=== PATIENT | female | born 1955 | race African-American/Black ===

== ENCOUNTER 2017-03-04 08:36 | Emergency (ER) | payer OTHER ==
[~2017-03-04] VITALS: Ht 165.1 cm; Wt 64.4 kg
--- NOTE | ~2017-03-04 | EKG ---
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1955 Requested By: Shahbaz Coronel Order Number: [id number] MD: Minh Hood Measurements Intervals [place] Rate: 75 P: 103 [place]: 154 QRS: -34 QRSD: 97 T: 85 QT: 389 QTc: 435 Interpretive Statements Sinus rhythm Consider left atrial enlargement RSR' in V1 or V2, right VCD or RVH LVH with secondary repolarization abnormality Compared to ECG 04/21/2014 01:51:21 Right ventricular hypertrophy now present RSR' in V1 or V2 now present Left ventricular hypertrophy now present Early repolarization now present Ventricular preexcitation no longer present Electronically Signed On 03-04-2017 15:49:12 POULTRY PICKING MACHINE TENDER by Minh Hood [email or web address] <ELECTRONICALLY SIGNED> By: Minh Hood MD 03/04/17 1549 0848 Minh Hood MD /EPI
--- NOTE | ~2017-03-04 | EKG ---
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1955 Requested By: Devi Bell Order Number: [id number] MD: Minh Hood Measurements Intervals [place] Rate: 66 P: 51 [place]: 169 QRS: -3 QRSD: 83 T: 33 QT: 400 QTc: 420 Interpretive Statements Sinus rhythm Probable left atrial enlargement RSR' in V1 or V2, right VCD or RVH Borderline ST elevation, anterolateral leads Compared to ECG 03/04/2017 08:48:02 ST (T wave) deviation now present Left ventricular hypertrophy no longer present Early repolarization no longer present Electronically Signed On 03-04-2017 18:42:37 RUBBER BLOCK LAYER by Minh Hood [email or web address] <ELECTRONICALLY SIGNED> By: Minh Hood MD 03/04/17 1842 1044 1044 Minh Hood MD /EPI
[~2017-03-04 08:36] MED LIST: BACTRIM DS TAB1 EACH; FLEXERIL PO; IBUPROFEN 600600 M1 PO; IBUPROFEN 800800 M1 PO; MEDROLDOSEPACK PO; MOBIC15 MG PO; MULTIVITAMINS1 EAC7 PO; NOHOMEMEDICATIONS; NORCO 5-325 TA1 EACH PO; NORFLEX100 MG PO; OSELB75 PO; PENICILLIN V P500 MG PO; SENNA8.6 MG PO
[2017-03-04 09:21] LABS: ABSOLUTE NEUTROPHILS 1.4 thou/uL (1.4-8.2); BASOPHILS 0.6 % (0.0-2.0); EOSINOPHILS 2.7 % (0.0-3.0); HEMOGLOBIN 12.3 gm/dL (12.0-15.0); LYMPHOCYTES 40.4 % (24.0-44.0); MCH 27.6 pg (26.0-34.0); MCHC 32.2 g/dL (28.0-37.0); MCV 85.5 fL (80.0-100.0); MONOCYTES 9.9 % (1.0-8.0); PLATELET COUNT 127 thou/uL (150-400); POLYS 46.4 % (36.0-66.0); RBC 4.44 mil/uL (4.20-5.00); RDW 13.7 % (10.5-14.5)
[2017-03-04 09:23] LABS: MANUAL DIFF NO
[2017-03-04 09:26] LABS: ANION GAP 4 mmol/L (7-16); BUN 12 mg/dL (7-18); CALCIUM 9.6 mg/dL (8.5-10.1); CHLORIDE 107 mmol/L (98-107); CO2 30 mmol/L (21-32); CREATININE 0.8 mg/dL (0.6-1.0); GLUCOSE 88 mg/dL (74-106); SODIUM 141 mmol/L (136-145)
[2017-03-04 09:35] LABS: ALBUMIN 3.7 g/dL (3.4-5.0); ALKALINE PHOSPHATASE 95 U/L (46-116); SGOT 15 U/L (15-37); SGPT 18 U/L (30-65); TOTAL BILIRUBIN 0.6 mg/dL (<0.1-1.0); TOTAL PROTEIN 7.8 g/dL (6.4-8.2); TROPONIN-I < 0.04 ng/mL (<0.06)
[2017-03-04 09:36] LABS: APTT 23.8 Seconds (24.5-32.8)
[2017-03-04] MEDS ORDERED: HYDROCODONE-AP1 EAC6 PO (11:23)
[2017-03-04] MEDS ORDERED: PREDNISONE 20 M20 MG PO (11:23)
[2017-03-04 11:27] VITALS: BP 132/79
== END 2017-03-04 11:42 | disposition home or self-care (01) ==
LOC: ER 08:36
PROVIDERS: Emergency Medicine
DX: R09.1 Pleurisy (principal); R07.89 Other chest pain; H61.22 Impacted cerumen, left ear; I45.6 Pre-excitation syndrome; F10.99 Alcohol use, unspecified with unspecified alcohol-induced disorder; Z90.49 Acquired absence of other specified parts of digestive tract; Z98.890 Other specified postprocedural states; Z90.710 Acquired absence of both cervix and uterus; Z88.5 Allergy status to narcotic agent

== ENCOUNTER 2018-05-03 09:52 | Emergency (ER) | payer OTHER ==
[~2018-05-03] VITALS: Ht 165.1 cm; Wt 63.5 kg
[~2018-05-03 09:52] MED LIST changes: +HYDROCODONE-AP1 EAC6 PO; +PREDNISONE 20 M20 MG PO; +ZOFRAN ODT4 MG PO
[2018-05-03 10:24] LABS: URINE BILIRUBIN NEGATIVE (Negative); URINE BLOOD NEGATIVE (Negative); URINE CLARITY CLEAR; URINE COLOR YELLOW; URINE GLUCOSE-RANDOM* NEGATIVE (Negative); URINE KETONES NEGATIVE (Negative); URINE LEUKOCYTES-REFLEX NEGATIVE (Negative); URINE NITRITE-REFLEX NEGATIVE (Negative); URINE PROTEIN (DIPSTICK) NEGATIVE (Negative); URINE SPECIFIC GRAVITY 1.025 (1.005-1.035); URINE UROBILINOGEN 0.2 E.U./dl (0.2-1.0)
[2018-05-03 10:34] LABS: ABSOLUTE NEUTROPHILS 6.4 thou/uL (1.4-8.2); BASOPHILS 0.2 % (0.0-2.0); HEMATOCRIT 43.6 % (37.0-47.0); HEMOGLOBIN 14.2 gm/dL (12.0-15.0); LYMPHOCYTES 1.8 % (24.0-44.0); MCH 27.9 pg (26.0-34.0); MCHC 32.6 g/dL (28.0-37.0); MCV 85.6 fL (80.0-100.0); MONOCYTES 2.5 % (1.0-8.0); PLATELET COUNT 156 thou/uL (150-400); POLYS 95.5 % (36.0-66.0); RBC 5.09 mil/uL (4.20-5.00); WBC 6.8 thou/uL (4.0-11.0)
[2018-05-03] MEDS ORDERED: NEURONTIN 300300 M1 PO (10:37)
[2018-05-03 10:38] LABS: CALCIUM 10.1 mg/dL (8.5-10.1); POTASSIUM 4.2 mmol/L (3.5-5.1)
[2018-05-03] MEDS ORDERED: ZANTAC 150MG T150 M1 PO (10:39)
[2018-05-03 10:44] LABS: ALBUMIN 4.2 g/dL (3.4-5.0); TOTAL BILIRUBIN 0.6 mg/dL (<0.1-1.0); TOTAL PROTEIN 8.5 g/dL (6.4-8.2)
[2018-05-03] MEDS ORDERED: ZOFRAN ODT4 MG PO (11:34)
[2018-05-03 11:45] VITALS: BP 128/73
== END 2018-05-03 11:46 | disposition home or self-care (01) ==
LOC: ER 09:52
PROVIDERS: Emergency Medicine
DX: K52.9 Noninfective gastroenteritis and colitis, unspecified (principal); Z90.49 Acquired absence of other specified parts of digestive tract; Z90.710 Acquired absence of both cervix and uterus; Z98.890 Other specified postprocedural states; Z88.5 Allergy status to narcotic agent

== ENCOUNTER 2018-05-23 15:44 | Emergency (ER) | payer OTHER ==
[~2018-05-23] VITALS: Ht 165.1 cm; Wt 63.5 kg
[~2018-05-23 15:44] MED LIST changes: +NEURONTIN 300300 M1 PO; +ZANTAC 150MG T150 M1 PO
[2018-05-23 16:10] LABS: ABSOLUTE NEUTROPHILS 4.9 thou/uL (1.4-8.2); BASOPHILS 0.2 % (0.0-2.0); HEMATOCRIT 41.7 % (37.0-47.0); HEMOGLOBIN 13.9 gm/dL (12.0-15.0); LYMPHOCYTES 5.2 % (24.0-44.0); MCH 28.5 pg (26.0-34.0); MCHC 33.3 g/dL (28.0-37.0); MCV 85.4 fL (80.0-100.0); MONOCYTES 6.9 % (1.0-8.0); POLYS 87.7 % (36.0-66.0); RBC 4.88 mil/uL (4.20-5.00); RDW 13.7 % (10.5-14.5); WBC 5.6 thou/uL (4.0-11.0)
[2018-05-23 16:24] LABS: CALCIUM 10.4 mg/dL (8.5-10.1); CREATININE 1.2 mg/dL (0.6-1.0); POTASSIUM 4.1 mmol/L (3.5-5.1)
[2018-05-23 16:30] LABS: TOTAL BILIRUBIN 0.6 mg/dL (<0.1-1.0); TOTAL PROTEIN 8.5 g/dL (6.4-8.2)
[2018-05-23 17:18] LABS: LARGE PLATELETS SEVERAL; PLATELET COUNT 163 thou/uL (150-400)
[2018-05-23 18:18] LABS: URINE BILIRUBIN NEGATIVE (Negative); URINE BLOOD NEGATIVE (Negative); URINE CLARITY CLEAR; URINE COLOR YELLOW; URINE GLUCOSE-RANDOM* NEGATIVE (Negative); URINE KETONES TRACE (Negative); URINE LEUKOCYTES-REFLEX NEGATIVE (Negative); URINE NITRITE-REFLEX NEGATIVE (Negative); URINE PROTEIN (DIPSTICK) TRACE (Negative); URINE SPECIFIC GRAVITY >= 1.030 (1.005-1.035); URINE UROBILINOGEN 0.2 E.U./dl (0.2-1.0)
[2018-05-23 18:28] LABS: AMP/METHAMP Negative (Negative); BARBITURATES Negative (Negative); BENZODIAZEPINES Negative (Negative); COCAINE Negative (Negative); METHADONE Negative (Negative); OPIATES Negative (Negative); PCP Negative (Negative)
[2018-05-23] MEDS ORDERED: ZOFRAN ODT4 MG PO (18:55)
[2018-05-23 19:15] VITALS: BP 111/64
== END 2018-05-23 19:16 | disposition home or self-care (01) ==
LOC: ER 15:44
PROVIDERS: Emergency Medicine
DX: R11.2 Nausea with vomiting, unspecified (principal); R19.7 Diarrhea, unspecified; Z98.890 Other specified postprocedural states; Z90.49 Acquired absence of other specified parts of digestive tract; Z90.710 Acquired absence of both cervix and uterus; Z88.6 Allergy status to analgesic agent; Z79.899 Other long term (current) drug therapy

== ENCOUNTER 2018-10-02 08:42 | Emergency (ER) | payer OTHER ==
[~2018-10-02] VITALS: Ht 165.1 cm; Wt 63.5 kg
[2018-10-02 10:20] LABS: HEMATOCRIT 34.8 % (37.0-47.0); HEMOGLOBIN 11.4 gm/dL (12.0-15.0); MCH 28.2 pg (26.0-34.0); MCHC 32.9 g/dL (28.0-37.0); MCV 85.6 fL (80.0-100.0); PLATELET COUNT 133 thou/uL (150-400); RBC 4.06 mil/uL (4.20-5.00); RDW 14.1 % (10.5-14.5)
[2018-10-02 10:29] LABS: ANION GAP 4 mmol/L (7-16); BUN 16 mg/dL (7-18); CALCIUM 9.7 mg/dL (8.5-10.1); CHLORIDE 106 mmol/L (98-107); CO2 30 mmol/L (21-32); CREATININE 0.9 mg/dL (0.6-1.0); GLUCOSE 84 mg/dL (74-106); POTASSIUM 4.8 mmol/L (3.5-5.1); SODIUM 140 mmol/L (136-145)
[2018-10-02 10:37] LABS: TROPONIN-I <0.06 ng/mL (<0.06)
[2018-10-02 10:53] LABS: ABSOLUTE NEUTROPHILS 1.2 thou/uL (1.4-8.2); ANISOCYTOSIS 1+
[2018-10-02] MEDS ORDERED: NORFLEX100 MG PO (11:03)
[2018-10-02] MEDS ORDERED: NAPROSYN500 MG PO (11:03)
[2018-10-02] MEDS ORDERED: MEDROLDOSEPACK PO (11:16)
[2018-10-02 11:46] VITALS: BP 134/74
--- NOTE | 2018-10-04 09:07 | EKG ---
[address] [place] [address] ELECTROCARDIOGRAM REPORT Name: DAMASO GARCIAOH Lares Room #: 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: [id number] : 1955 Requested By: Fili Carreon Order Number: [id number] MD: Junaid Mancilla Measurements Intervals [place] Rate: 58 P: 135 [place]: 157 QRS: -7 QRSD: 92 T: 50 QT: 384 QTc: 378 Interpretive Statements Baseline artifact limits interpretation Sinus or ectopic atrial rhythm Compared to ECG 03/08/2017 17:22:19 No significant changes Electronically Signed On 10-04-2018 9:07:43 CDT by Junaid Mancilla [email or web address] ��������������������������������������������� <ELECTRONICALLY SIGNED> ���������������������������������������� By: Junaid Mancilla MD, [facility] ��������������������������������������������� 10/04/1807 0947 0947 Junaid Mancilla MD, FAC /EPI
== END 2018-10-02 11:46 | disposition home or self-care (01) ==
LOC: ER 08:42
PROVIDERS: Emergency Medicine
DX: M54.2 Cervicalgia (principal); M54.6 Pain in thoracic spine; R07.89 Other chest pain; Z90.49 Acquired absence of other specified parts of digestive tract; Z98.890 Other specified postprocedural states; Z90.710 Acquired absence of both cervix and uterus; Z88.5 Allergy status to narcotic agent

== ENCOUNTER 2018-11-04 17:56 | Emergency (ER) | payer OTHER ==
[~2018-11-04] VITALS: Ht 165.1 cm; Wt 62.6 kg
[~2018-11-04 17:56] MED LIST changes: +NAPROSYN500 MG PO
[2018-11-04] MEDS ORDERED: NEURONTIN600 MG PO (18:23)
[2018-11-04] MEDS ORDERED: NAPROSYN500 MG PO (19:32)
[2018-11-04] MEDS ORDERED: TRAMADOL 50 MG50 MG PO (19:32)
[2018-11-04 19:39] VITALS: BP 133/79
== END 2018-11-04 19:40 | disposition home or self-care (01) ==
LOC: ER 17:56
DX: S70.01XA Contusion of right hip, initial encounter (principal); M25.511 Pain in right shoulder; M25.521 Pain in right elbow; Z88.5 Allergy status to narcotic agent; Z79.899 Other long term (current) drug therapy; Z98.890 Other specified postprocedural states; Z90.49 Acquired absence of other specified parts of digestive tract; Z90.710 Acquired absence of both cervix and uterus; W18.49XA Other slipping, tripping and stumbling without falling, initial encounter; Y93.89 Activity, other specified; Y92.511 Restaurant or cafe as the place of occurrence of the external cause; Y99.9 Unspecified external cause status

== ENCOUNTER 2018-11-08 10:52 | Emergency (ER) | payer OTHER ==
[~2018-11-08] VITALS: Ht 165.1 cm; Wt 62.6 kg
[~2018-11-08 10:52] MED LIST changes: +NEURONTIN600 MG PO; +TRAMADOL 50 MG50 MG PO
[2018-11-08 10:53] VITALS: BP 152/71
[2018-11-08] MEDS ORDERED: ULTRAM 50MG TAB50 MG PO (11:15)
== END 2018-11-08 11:25 | disposition home or self-care (01) ==
LOC: ER 10:52
DX: M54.41 Lumbago with sciatica, right side (principal); Z98.890 Other specified postprocedural states; Z90.49 Acquired absence of other specified parts of digestive tract; Z90.710 Acquired absence of both cervix and uterus; Z88.5 Allergy status to narcotic agent

== ENCOUNTER 2019-02-18 08:33 | Emergency (ER) | payer OTHER ==
[~2019-02-18] VITALS: Ht 165.1 cm; Wt 62.6 kg
[~2019-02-18 08:33] MED LIST changes: +ULTRAM 50MG TAB50 MG PO
[2019-02-18] MEDS ORDERED: ONE-A-DAY WOMENS PO (08:57)
[2019-02-18] MEDS ORDERED: VITAMIN D250000 UNIT PO (08:57)
[2019-02-18] MEDS ORDERED: OMEPRAZOLE40 MG PO (08:57)
[2019-02-18] MEDS ORDERED: CALCIUM500 MG PO (08:58)
[2019-02-18 09:53] LABS: URINE BILIRUBIN NEGATIVE (Negative); URINE BLOOD NEGATIVE (Negative); URINE CLARITY CLEAR; URINE COLOR YELLOW; URINE GLUCOSE-RANDOM* NEGATIVE (Negative); URINE KETONES NEGATIVE (Negative); URINE LEUKOCYTES-REFLEX NEGATIVE (Negative); URINE NITRITE-REFLEX NEGATIVE (Negative); URINE PROTEIN (DIPSTICK) NEGATIVE (Negative); URINE UROBILINOGEN 0.2 E.U./dl (0.2-1.0)
[2019-02-18 10:30] LABS: ABSOLUTE NEUTROPHILS 1.9 thou/uL (1.4-8.2); BASOPHILS 0.6 % (0.0-2.0); EOSINOPHILS 1.8 % (0.0-3.0); HEMATOCRIT 40.3 % (37.0-47.0); HEMOGLOBIN 12.8 gm/dL (12.0-15.0); LYMPHOCYTES 38.2 % (24.0-44.0); MCHC 31.9 g/dL (28.0-37.0); MCV 87.7 fL (80.0-100.0); MONOCYTES 7.9 % (1.0-8.0); POLYS 51.5 % (36.0-66.0); RBC 4.59 mil/uL (4.20-5.00); RDW 13.9 % (10.5-14.5); WBC 3.6 thou/uL (4.0-11.0)
[2019-02-18 10:44] LABS: ANION GAP 10 mmol/L (7-16); BUN 12 mg/dL (7-18); CHLORIDE 104 mmol/L (98-107); CO2 26 mmol/L (21-32); CREATININE 0.7 mg/dL (0.6-1.0); GLUCOSE 90 mg/dL (74-106); SODIUM 140 mmol/L (136-145)
[2019-02-18 10:55] LABS: ALBUMIN 4.1 g/dL (3.4-5.0); LIPASE 123 U/L (73-393); SGOT 15 U/L (15-37); SGPT 13 U/L (30-65); TOTAL BILIRUBIN 0.5 mg/dL (<0.1-1.0); TOTAL PROTEIN 7.8 g/dL (6.4-8.2); TROPONIN-I <0.06 ng/mL (<0.06)
[2019-02-18 11:36] LABS: PLATELET COUNT 138 thou/uL (150-400); PLATELET ESTIMATE NORMAL
[2019-02-18] MEDS ORDERED: ZOFRAN ODT4 MG PO (11:59)
[2019-02-18 12:05] VITALS: BP 133/72
--- NOTE | 2019-02-18 12:30 | EKG ---
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 : 1955 Requested By: Clement Macdonald Order Number: [id number] MD: Robles Lujan Measurements Intervals [place] Rate: 63 P: 55 [place]: 167 QRS: 4 QRSD: 90 T: 53 QT: 423 QTc: 434 Interpretive Statements Sinus rhythm Probable left atrial enlargement Nonspecific ST segment abnormalities Compared to ECG 10/02/2018 09:47:44 Right ventricular hypertrophy now present RSR' in V1 or V2 now present ST (T wave) deviation now present Ectopic atrial rhythm no longer present Electronically Signed On 02-18-2019 12:29:48 COOK CHEF by Robles Lujan [email or web address] <ELECTRONICALLY SIGNED> By: Robles Lujan MD 02/18/19 1229 0844 Rolbes Lujan MD /EPI
== END 2019-02-18 12:05 | disposition home or self-care (01) ==
LOC: ER 08:33
PROVIDERS: Emergency Medicine
DX: R51 Headache (principal); R53.1 Weakness; R05 Cough; R11.0 Nausea; Z88.5 Allergy status to narcotic agent; Z98.890 Other specified postprocedural states; Z90.710 Acquired absence of both cervix and uterus; Z90.49 Acquired absence of other specified parts of digestive tract

== ENCOUNTER 2019-09-07 12:19 | Emergency (ER) | payer OTHER ==
[~2019-09-07] VITALS: Ht 165.1 cm; Wt 63.5 kg
[~2019-09-07 12:19] MED LIST changes: +CALCIUM500 MG PO; +OMEPRAZOLE40 MG PO; +ONE-A-DAY WOMENS PO; +VITAMIN D250000 UNIT PO
[2019-09-07] MEDS ORDERED: PREDNISONE 10 M10 MG PO (13:43)
[2019-09-07] MEDS ORDERED: NORFLEX100 MG PO (13:43)
[2019-09-07 14:00] VITALS: BP 133/83
== END 2019-09-07 14:00 | disposition home or self-care (01) ==
LOC: ER 12:19
DX: M54.32 Sciatica, left side (principal); I45.6 Pre-excitation syndrome; Z88.5 Allergy status to narcotic agent; Z79.899 Other long term (current) drug therapy; Z98.890 Other specified postprocedural states; Z90.49 Acquired absence of other specified parts of digestive tract; Z90.710 Acquired absence of both cervix and uterus

== ENCOUNTER 2019-11-16 14:26 | Emergency (ER) | payer OTHER ==
[~2019-11-16] VITALS: Ht 165.1 cm; Wt 67.1 kg
[~2019-11-16 14:26] MED LIST changes: +PREDNISONE 10 M10 MG PO
[2019-11-16] MEDS ORDERED: VITAMIN B-121000 MC2 SUBLING (14:46)
[2019-11-16] MEDS ORDERED: REGLAN 5 MG TAB5 MG PO (17:52)
[2019-11-16 18:23] VITALS: BP 155/84
== END 2019-11-16 18:23 | disposition home or self-care (01) ==
LOC: ER 14:26
DX: R51 Headache (principal); R11.0 Nausea; M54.2 Cervicalgia; Z98.890 Other specified postprocedural states; Z90.711 Acquired absence of uterus with remaining cervical stump; Z90.49 Acquired absence of other specified parts of digestive tract; Z79.899 Other long term (current) drug therapy; Z88.5 Allergy status to narcotic agent

== ENCOUNTER 2021-05-02 11:16 | Emergency (ER) | payer OTHER ==
[~2021-05-02] VITALS: Ht 165.1 cm; Wt 67.1 kg
--- NOTE | ~2021-05-02 | EMS ---
[address] [address] EMS Patient Care Report Name: JEFFREY GARCIA Room #: [facility]#: [id number] Admission: 05/02/21 Attend Phys: Discharge: 05/02/21 Date of : 59 Report #: [id number] THIS REPORT FOR: //name// Report Transmitted: 05/06/2021 14:27 EMS Care Summary [place], [place]/[facility] Incident [id number] @ 05/02/2021 10:43 Incident Location [address] [place] [id number] Patient JEFFREY GARCIA Female, 66 Years 1955 Patient Address [address] [place] [id number] Patient History None Reported, Patient Allergies Morphine, Patient Medications None Reported, Chief Complaint SHORTNESS OF BREATH Disposition Transported No Lights/[place] Dispatch Reason Breathing Problem Transported To [facility] Narrative M42 WAS DISPATCHED FOR A SHORTNESS OF BREATH. UPON ARRIVAL THE PT WAS WALKING OUT TO THE AMBULANCE THE PT INFORMED EMS THAT SHE WAS COVID POSITIVE AND THAT [address] [address] EMS Patient Care Report Name: JEFFREY GARCIA Room #: [facility]#: [id number] Admission: 05/02/21 Attend Phys: Discharge: 05/02/21 Date of : 59 Report #: [id number] SHE HAD BEEN EXPERIENCING SHORTNESS OF BREATH FOR THE PAST 24 HOURS. THE PT SAID THAT SHE HAD ALSO DEVELOPED A SHARP PAIN THAT STARTED UNDER HER LEFT ARMPIT AND RADIATED TO HER MIDDLE AND LOWER BACK. THE PT BREATH SOUNDS WERE CLEAR AND HER 12 LEAD WAS NEGATIVE FOR ANY ST ELEVATION OR DEPRESSION. THE PT WAS TRANSPORTED TO THE HOSPITAL AND MONITORED ENROUTE. THE PT WAS TRANSFERRED TO HOSPITAL STAFF WITH A REPORT. EMS RETURNED TO SERVICE. Initial Vitals @11:01P: 81,R: 18,BP: 167/85,Pain: 2/10,GCS: 15,CO: 1,SpO2: 99,Revised Trauma: 12,MA Suspected: false @11:04P: 80,R: 18,Pain: 2/10,GCS: 15,CO: 1,SpO2: 98,MA Suspected: false @11:08P: 101,R: 16,BP: 143/88,Pain: 2/10,GCS: 15,SpO2: 98,Revised Trauma: 12,MA Suspected: false Assessments @10:59MENTAL:Event Oriented,Person Oriented,Place Oriented,Time Oriented,SKIN:HEENT:Head/Face: No Abnormalities,Eyes: No Abnormalities,Neck/Airway: No Abnormalities,LUNG SOUNDS:General: No Abnormalities,ABDOMEN:General: No Abnormalities,PELVIS//GI:No Abnormalities,EXTREMITIES:Left Arm: No Abnormalities,Right Arm: No Abnormalities,Left Leg: No Abnormalities,Right Leg: No Abnormalities,PULSE:Radial: 2+ Normal,NEURO:No Abnormalities, Impression Acute Respiratory Distress (Dyspnea) Procedures @11:04 12-Lead ECG @10:59 ALS Assessment Response: UnchangedSucceeded @11:01 3-Lead ECG Response: UnchangedSucceeded Timeline 10:42,Call Received 10:42,Dispatch Notified 10:43,Dispatched 10:45,En Route 10:58,On Scene 10:59,At Patient 10:59,ALS Assessment,Response: UnchangedSucceeded, 11:01,3-Lead ECG,Response: UnchangedSucceeded, 11:01,BP: 167/85 M,PULSE: 81,RR: 18 R,SPO2: 99 Ox,ETCO2: ,BG: ,PAIN: 2,GCS: 15, 11:04,12-Lead ECG, 11:04,BP: / M,PULSE: 80,RR: 18 R,SPO2: 98 Ox,ETCO2: ,BG: ,PAIN: 2,GCS: 15, 11:04,Depart Scene 11:08,BP: 143/88 M,PULSE: 101,RR: 16 R,SPO2: 98 Ox,ETCO2: ,BG: ,PAIN: 2,GCS: [address] [address] EMS Patient Care Report Name: JEFFREY GARCIA Luda [id number] Admission: 05/02/21 Attend Phys: Discharge: 05/02/21 Date of : [birth year] Report #: [id number] 15, 11:13,At Destination 11:24,Call Closed Disclaimer v1.1 Copyright 2021 [employer] This EMS Care Summary contains data elements from the applicable legal record (which may be displayed differently). It is designed to provide pertinent information for the following purposes: continuity of care, clinical quality, and state data reporting. The complete legal record is available to ED staff and administrators of the receiving hospital in [employer] Patient Tracker. All data is provided "as is."
[~2021-05-02 11:16] MED LIST changes: +REGLAN 5 MG TAB5 MG PO; +VITAMIN B-121000 MC2 SUBLING
[2021-05-02 12:44] LABS: CALCIUM 9.7 mg/dL (8.5-10.1); CREATININE 0.9 mg/dL (0.6-1.0); POTASSIUM 4.1 mmol/L (3.5-5.1)
[2021-05-02 12:45] LABS: HEMATOCRIT 40.4 % (37.0-47.0); HEMOGLOBIN 12.9 gm/dL (12.0-15.0); MCH 28.1 pg (26.0-34.0); MCV 87.6 fL (80.0-100.0); PLATELET COUNT 131 thou/uL (150-400); RBC 4.61 mil/uL (4.20-5.00); RDW 14.4 % (10.5-14.5); WBC 2.5 thou/uL (4.0-11.0)
[2021-05-02 12:54] LABS: TOTAL BILIRUBIN 0.4 mg/dL (0.2-1.0); TOTAL PROTEIN 8.3 g/dL (6.4-8.2)
[2021-05-02] MEDS ORDERED: TESSALON PERLE100 MG PO (13:31)
[2021-05-02] MEDS ORDERED: PROAIR HFA8.5 GM INH (13:31)
[2021-05-02 13:40] VITALS: BP 145/84
--- NOTE | 2021-05-03 07:41 | EKG ---
[place] [address] [place] [address] ELECTROCARDIOGRAM REPORT Name: JEFFREY GARCIA Luda Room #: [facility]#: [id number] Admission: 05/02/21 Attend Phys: Discharge: 05/02/21 Date of : [birth year] Report #: [id number] [facility] ED Test Date: 2021-05-02 Test Time: 12:54:04 Pat Name: JEFFREY GARCIA Department: Room: Gender: F Nurse Staff [facility]: [facility] : 1955 Requested By: Kelly Goss Order Number: [id number] MD: Junaid Mancilla Measurements Intervals [place] Rate: 70 P: 48 [place]: 160 QRS: 13 QRSD: 85 T: 70 QT: 391 QTc: 422 Interpretive Statements Sinus rhythm Abnormal R-wave progression, early transition Nonspecific T wave abnormality Compared to ECG 02/18/2019 08:44:27 No significant change was found Electronically Signed On 05-03-2021 7:41:42 HUMAN RESOURCES REPRESENTATIVE by Junaid Mancilla [email or web address] <ELECTRONICALLY SIGNED> By: Junaid Mancilla MD, [facility] 05/03/21 0741 1254 1254 Junaid Mancilla MD, FACC /EPI
== END 2021-05-02 13:40 | disposition home or self-care (01) ==
LOC: ER 11:16
PROVIDERS: Physician Assistant
DX: U07.1 COVID-19 (principal); R09.1 Pleurisy; F12.90 Cannabis use, unspecified, uncomplicated; Z98.890 Other specified postprocedural states; Z90.49 Acquired absence of other specified parts of digestive tract; Z90.710 Acquired absence of both cervix and uterus; Z79.899 Other long term (current) drug therapy; Z79.891 Long term (current) use of opiate analgesic; Z88.5 Allergy status to narcotic agent